=== PATIENT | male | born 1965 | race Hispanic/Latino ===

== ENCOUNTER 2021-11-16 18:52 | Emergency (ER) | payer OTHER ==
[2021-11-16 19:24] LABS: #Basophils 0.1 10x3/uL (0.0-0.2); #Eosinphils 0.3 10x3/uL (0.0-0.5); #Monocytes 0.5 10x3/uL (0.0-1.1); #Neutrophils 6.7 10x3/uL (1.5-8.4); %Basophils 0.7 % (0.0-2.0); %Eosinophils 3.3 % (0.0-6.0); %Lymphocytes 21.4 % (18.0-47.0); %Monocytes 4.9 % (0.0-10.0); %Neutrophils 69.3 % (40.0-75.0); Hemoglobin 12.7 g/dL (13.5-17.5); Mean Corpuscular Hemoglobin 26.6 pg (27.0-33.0); Mean Corpuscular Volume 83.2 fl (81.2-95.1); Mean Platelet Volume 9.7 fl (7.4-10.4); Platelet Count 246 10x3/uL (150-450); RBC Distribution Width 12.6 % (11.5-14.5); Red Blood Cell (RBC) Count 4.77 10x6/uL (4.32-5.72); White Blood Cell (WBC) Count 9.7 10x3/uL (3.5-10.5)
[2021-11-16 19:35] LABS: ALT (SGPT) 21 U/L (8-55); AST (SGOT) 22 U/L (5-34); Alkaline Phosphatase 159 U/L (40-110); Anion Gap 14 mmol/L (10-20); BUN (Urea Nitrogen) 17 mg/dL (8.4-25.7); Bilirubin, Total 0.3 mg/dL (0.2-1.2); Calc. Creatinine Clearance 0 mL/min (70-130); Calcium 9.2 mg/dL (7.8-10.44); Carbon Dioxide 22 mmol/L (22-29); Chloride 103 mmol/L (98-107); Estimated GFR 65; Globulin 4.7 g/dL (2.4-3.5); Glucose 205 mg/dL (70-105); Protein, Total 8.7 g/dL (6.0-8.3); Sodium 131 mmol/L (136-145)
[2021-11-16 19:43] LABS: Potassium 7.5 mmol/L (3.5-5.1)
[2021-11-16] MEDS ORDERED: Furosemide 40 MG/4 ML VIAL ONE (19:57)
[2021-11-16] MEDS ORDERED: Lorazepam 2 MG/ML VIAL ONE (19:58)
[2021-11-16] MEDS ORDERED: Sodium Bicarb 50 MEQ/50 ML VIAL ONE ×2 (19:59)
[2021-11-16] MEDS ORDERED: Calcium Chloride 1 GM/10 ML Abboject SYRINGE ONE (19:59)
[2021-11-16] MEDS ORDERED: Insulin Regular 300 UNITS/3 ML VIAL ONE (20:00)
[2021-11-16] MEDS ORDERED: Sodium Bicarb 50 MEQ/50 ML Abboject 8.4% SYRINGE ONE (20:01)
[2021-11-16] MEDS ORDERED: Dextrose 50% Abboject 50 ML SYRINGE ONE (20:03)
[2021-11-16 20:20] LABS: Magnesium 1.5 mg/dL (1.6-2.6)
[2021-11-16] MEDS ORDERED: Magnesium 2 GM/50 ML BAG (IN WATER) ONE (21:09)
[2021-11-16 21:31] LABS: SARS-CoV-2 NAA Rapid Test Not Detected (NotDetected)
[2021-11-16 22:36] LABS: Anion Gap 15 mmol/L (10-20); BUN (Urea Nitrogen) 19 mg/dL (8.4-25.7); Calc. Creatinine Clearance 0 mL/min (70-130); Calcium 9.9 mg/dL (7.8-10.44); Carbon Dioxide 22 mmol/L (22-29); Chloride 102 mmol/L (98-107); Estimated GFR 56; Glucose 187 mg/dL (70-105); Sodium 131 mmol/L (136-145)
[2021-11-16 22:39] LABS: Potassium 7.6 mmol/L (3.5-5.1)
== END 2021-11-17 06:07 | disposition short-term general hospital (02) ==
LOC: CSHERS 18:52
DX: E87.5 Hyperkalemia (principal); R06.02 Shortness of breath; E78.5 Hyperlipidemia, unspecified; I10 Essential (primary) hypertension; E11.9 Type 2 diabetes mellitus without complications; I25.10 Atherosclerotic heart disease of native coronary artery without angina pectoris; J44.9 Chronic obstructive pulmonary disease, unspecified; Z20.822 Contact with and (suspected) exposure to COVID-19; Z86.73 Personal history of transient ischemic attack (TIA), and cerebral infarction without residual deficits; Z79.899 Other long term (current) drug therapy
CPT/HCPCS: 36415; 71045; 80053; 83735; 83880; 84484; 85025; 96374; 96375; J1815; J1940; J2060; J3475; J7999; U0002